=== PATIENT | female | born 2005 | race African-American/Black ===

== ENCOUNTER 2025-02-20 23:24 | Emergency (ER) | payer SELFPAY ==
[~2025-02-20] VITALS: Ht 172.7 cm; Wt 82.2 kg
[2025-02-21] MEDS: ONDANSETRON 4MG 2ML VIAL IV ONE (00:19)
[2025-02-21] MEDS: KETOROLAC 30 MG/ML 1 ML VIAL IV ONE (00:19)
[2025-02-21 00:20] LABS: ALT/SGPT 21 U/L (7.0-40); AST/SGOT 24 U/L (<34); CALCIUM LEVEL 9.4 MG/DL (8.5-10.1); CARBON DIOXIDE LEVEL 25 MMOL/L (20-31); CHLORIDE LEVEL 106 MMOL/L (98-107); CREATININE FOR GFR 0.73 MG/DL (0.55-1.30); GLOMERULAR FILTRATION RATE > 90.0 (>60); POTASSIUM SERUM 4.2 MMOL/L (3.5-5.1); SODIUM LEVEL 141 MMOL/L (136-145)
[2025-02-21 00:21] LABS: BASO # 0.0 10^3/uL (0.0-0.2); BASO % 0.3 % (0.0-1.0); EOS # 0.1 10^3/uL (0.0-0.5); EOS % 0.9 % (0.0-3.0); LYMPH # 1.5 10^3/uL (1.5-5.0); LYMPH % 23.0 % (24.0-44.0); MONO # 0.8 10^3/uL (0.0-0.8); MONO % 11.7 % (2.0-8.0); NEUTROPHILS # 4.0 10^3/uL (1.5-8.5); NEUTROPHILS % 63.3 % (36.0-66.0); PLATELET COUNT, AUTOMATED 273 10^3/uL (150-450)
[2025-02-21] MEDS ORDERED: ISOVUE-370 76% 100 ML VIAL As Ordered ONE (00:45)
[2025-02-21 01:07] LABS: C REACTIVE PROTEIN QUANTITATIV 0.79 MG/DL (<1.0)
[2025-02-21] MEDS: ACETAMINOPHEN *IV* 1,000 MG in IV 1 EA IV ONE (02:02)
[2025-02-21] MEDS ORDERED: ONDA-282 PO (03:27)
[2025-02-21 03:30] VITALS: BP 108/51; TEMP 98.9; O2SAT 98
== END 2025-02-21 03:38 | disposition home or self-care (01) ==
LOC: M ED 23:24
DX: M79.3 Panniculitis, unspecified (principal); Z79.899 Other long term (current) drug therapy
CPT/HCPCS: 74177; 80048; 80076; 83605; 83690; 84145; 85025; 86140; 96374; 96375; 99284; J0131; J1885; J2405; Q9967